=== PATIENT | female | born 1980 | race Caucasian/White ===

== ENCOUNTER 2016-08-26 04:47 | Emergency (ER) | payer OTHER ==
[~2016-08-26] VITALS: Ht 165.1 cm; Wt 126.1 kg
[~2016-08-26 04:47] MED LIST: ABILIFY5 MG PO; ADVAIR DISKUS1 DSK IH; ALBUTEROL0.09 MG/A2 IH; ANAPROX DS550 MG PO; BACTRIM DS 8001 TA1 PO; BIAXIN500 MG PO; CIPRO500 MG PO; CIPRODEX 0.3%-7.5 ML OT; CLARITIN-D 10 M1 T24 PO; CLARITIN10 MG PO; COMBIVENT1 ARO IH; CRESTOR20 MG PO; CYCLOBENZAPRINE10 MG PO; DICLOFENAC POTA50 MG PO; DOXYCYCLINE MO100 MG PO; ERYTHROMYCIN400 MG PO; FLONASE ALLERG9.9 ML NAS; FLONASE0.05 MG/AC NS; GLUCOPHAGE1000 MG PO; HYDROCODONE BIT1 T11 PO; IBU800 M1 PO; LANTUS100 U/ML SC; LEVAQUIN750 M1 PO; LEVAQUIN750 MG PO; LEVEMIR10 ML SC; LEVEMIR100 U/ML SC; LIPITOR80 MG PO; MAXZIDE-25 25 M1 TAB PO; MEDROL DOSEPAK4 MG PO; MOTRIN800 MG PO; NAPROSYN500 MG PO; NEXIUM I.V.40 MG PO; NEXIUM40 MG PO; NORCO 325 MG-51 TAB PO; NORFLEX100 MG PO; NOVOLOG FLEX100 U/ML SC; NYSTATIN CREAM15 GM T; PARAFON FORTE500 MG PO; POTASSIUM CHLO20 ME4 PO; PREDNICOT20 MG PO; PREDNISONE10 MG PO; PREDNISONE20 MG PO; PROVENTIL0.09 MG/AC IH; ROBITUSSIN AC 10 MG/ PO; ROBITUSSIN DM 105 ML PO; ROBITUSSIN DM120 ML PO; ROBITUSSIN-AC 160 ML PO; SILVADENE1% TP; SINGULAIR10 M1 PO; SUDAFED60 MG PO; TESSALON PERLE100 M1 PO; TESSALON PERLE200 MG PO; VALIUM10 MG PO; VICODIN 5-3001 EACH PO; VICODIN 5/500 505 MG PO; VITAMIN C500 MG PO; ZITHROMAX Z PA250 MG PO; ZITHROMAX Z-PA250 MG PO; ZITHROMAX250 MG PO; ZITHROMAX500 MG PO; ZOFRAN4 MG PO; ZYRTEC10 MG PO; Zofran4 MG PO; [UNRECOGNIZED DRUG - OTHER] PO; [UNRECOGNIZED DRUG - REMARK]; [UNRECOGNIZED DRUG - REMARK]
[2016-08-26] MEDS ORDERED: VENTOLIN H0.09 MG/AC INH (04:53)
[2016-08-26 06:22] VITALS: BP 138/72
[2016-08-26 06:54] LABS: BASO # 0.1 10*3/uL (0.0-0.1); BASO % 0.7 % (0.0-1.0); EOS # 0.3 10*3/uL (0.0-0.4); HEMATOCRIT 41.6 % (37.0-47.0); IG # 0.1 10*3/uL (0.0-0.1); LYMPH # 4.2 10*3/uL (1.3-4.4); LYMPH % 32.8 % (27.0-41.0); MEAN CELL VOLUME 93.1 fl (81.0-99.0); MEAN CORPUSCULAR HGB 31.3 pg (27.0-31.0); MEAN CORPUSCULAR HGB CONC 33.7 g/dl (33.0-37.0); MEAN PLATELET VOLUME 9.3 fl (9.6-12.3); MONO # 0.9 10*3/uL (0.1-1.0); MONO % 6.9 % (3.0-9.0); NEUT # 7.4 10*3/uL (2.3-7.9); NEUT % 57.2 % (47.0-73.0); PLATELET COUNT AUTOMATED 219 10*3/uL (130-400); RED BLOOD COUNT 4.47 10*6/uL (4.10-5.10); RED CELL DISTRI WIDTH 12.4 % (0-14.5); WHITE BLOOD COUNT 12.9 10*3/uL (4.8-10.8)
[2016-08-26 07:02] LABS: INTERNATIONAL NORM RATIO 0.9 (2.0-3.5)
[2016-08-26 07:11] LABS: ALBUMIN 3.3 gm/dl (3.1-4.5); ALKALINE PHOSPHATASE 81 U/L (45-117); BILIRUBIN, TOTAL 0.4 mg/dl (0.2-1.0); BUN 12 mg/dl (7-24); CARBON DIOXIDE 26 mmol/L (21-32); CHLORIDE 102 mmol/L (98-107); EST GLOM FILT AFRICAN AMERICAN > 60 ml/min; GLUCOSE 137 mg/dL (65-99); POTASSIUM 3.4 mmol/L (3.5-5.1); SGOT/AST 18 IU/L (3-35); SGPT/ALT 25 U/L (12-78); SODIUM 140 mmol/L (136-145); TOTAL PROTEIN 7.2 gm/dL (6.4-8.2)
[2016-08-26 07:12] LABS: C-REACTIVE PROTEIN 1.09 MG/DL (0-0.3); CKMB 1.3 ng/ml (0.5-3.6); MAGNESIUM 2.1 mg/dL (1.5-2.1)
[2016-09-05] MEDS ORDERED: MEDROL DOSEPAK4 MG PO (20:17)
[2016-09-05] MEDS ORDERED: ZITHROMAX500 MG PO (20:17)
[2016-10-09] MEDS ORDERED: FOLTANX TABLET1 EACH PO (01:17)
[2016-10-09] MEDS ORDERED: Glimepiride1 MG PO (01:17)
[2016-10-09] MEDS ORDERED: JANUVIA100 MG PO (01:17)
[2016-10-09] MEDS ORDERED: TRESIBA FL200 UNIT/1 SQ (01:18)
[2016-10-09] MEDS ORDERED: ZOFRAN ODT4 MG SL (03:56)
[2016-10-09] MEDS ORDERED: BENTYL10 MG PO (03:56)
[2016-10-09] MEDS ORDERED: ULTRAM50 MG PO (03:56)
== END 2016-08-26 07:48 | disposition home or self-care (01) ==
LOC: ED 04:47
PROVIDERS: Emergency Medicine
DX: J45.20 Mild intermittent asthma, uncomplicated (principal); F17.200 Nicotine dependence, unspecified, uncomplicated; Z98.890 Other specified postprocedural states; Z88.0 Allergy status to penicillin; Z91.041 Radiographic dye allergy status; Z88.5 Allergy status to narcotic agent

== ENCOUNTER → 2016-12-12 | Outpatient (CLI) | payer OTHER ==
[~2016-12-12] MED LIST changes: +BENTYL10 MG PO; +FOLTANX TABLET1 EACH PO; +Glimepiride1 MG PO; +JANUVIA100 MG PO; +TRESIBA FL200 UNIT/1 SQ; +ULTRAM50 MG PO; +VENTOLIN H0.09 MG/AC INH; +ZOFRAN ODT4 MG SL
== END | disposition home or self-care (01) ==
LOC: LAB 23:02
PROVIDERS: Internal Medicine
DX: G89.4 Chronic pain syndrome (principal); F11.90 Opioid use, unspecified, uncomplicated

== ENCOUNTER 2017-01-15 22:22 | Emergency (ER) | payer OTHER ==
[~2017-01-15] VITALS: Ht 165.1 cm; Wt 131.1 kg
[2017-01-15 22:29] VITALS: BP 140/80
[2017-01-15] MEDS ORDERED: VIBRAMYCIN100 MG PO (22:53)
[2017-01-15 23:00] LABS: BILIRUBIN NEGATIVE (NEGATIVE); BLOOD TRACE-INTACT (NEGATIVE); CLARITY CLEAR (CLEAR); COLOR YELLOW (YELLOW); GLUCOSE NEGATIVE (NEGATIVE); KETONE NEGATIVE (NEGATIVE); LEUKO ESTERASE NEGATIVE (NEGATIVE); NITRITE NEGATIVE (NEGATIVE); PH 5.5 (5.0-9.0); PROTEIN NEGATIVE (NEGATIVE); SPECIFIC GRAVITY 1.025 (1.005-1.030); UROBILINOGEN 0.2 E.U./dl (0.2-1.0)
[2017-01-15 23:18] LABS: BACTERIA 1+; RBC 0-2 rbc/hpf (0-2); URINE REFLEX COMMENT YES (NO)
== END 2017-01-15 23:31 | disposition home or self-care (01) ==
LOC: ED 22:22
PROVIDERS: Physician Assistant
DX: J01.91 Acute recurrent sinusitis, unspecified (principal); Z98.890 Other specified postprocedural states; Z79.899 Other long term (current) drug therapy; Z91.041 Radiographic dye allergy status; Z88.0 Allergy status to penicillin; Z88.5 Allergy status to narcotic agent

== ENCOUNTER → 2017-08-08 | Outpatient (CLI) | payer OTHER ==
[~2017-08-08] VITALS: Ht 165.1 cm; Wt 131.1 kg
[~2017-08-08] MED LIST changes: +ALL DAY ALLERGY10 MG PO; +ALLEGRA-D 24 H1 EACH PO; +VIBRAMYCIN100 MG PO
[2017-08-11 09:20] VITALS: BP 106/58
== END | disposition home or self-care (01) ==
LOC: LAB 00:01 → SDC 09:30 → EDSTATUS 08-11 09:30
DX: Z01.818 Encounter for other preprocedural examination (principal); M79.641 Pain in right hand; M65.311 Trigger thumb, right thumb; E11.9 Type 2 diabetes mellitus without complications; J44.9 Chronic obstructive pulmonary disease, unspecified; F17.200 Nicotine dependence, unspecified, uncomplicated

== ENCOUNTER 2017-08-26 00:50 | Emergency (ER) | payer OTHER ==
[~2017-08-26] VITALS: Ht 165.1 cm; Wt 131.1 kg
[~2017-08-26 00:50] MED LIST changes: -ALLEGRA-D 24 H1 EACH PO
[2017-08-26 00:54] VITALS: BP 146/65
[2017-08-26] MEDS ORDERED: FLONASE ALLERG9.9 ML NAS (01:02)
[2017-08-26] MEDS ORDERED: ALLEGRA-D 24 H1 EACH PO (01:02)
[2017-08-26] MEDS ORDERED: VIBRAMYCIN100 MG PO (01:02)
== END 2017-08-26 01:05 | disposition home or self-care (01) ==
LOC: ED 00:50
DX: J32.9 Chronic sinusitis, unspecified (principal); R05 Cough; J44.9 Chronic obstructive pulmonary disease, unspecified; F17.200 Nicotine dependence, unspecified, uncomplicated; Z98.890 Other specified postprocedural states; Z79.899 Other long term (current) drug therapy; Z91.041 Radiographic dye allergy status; Z88.0 Allergy status to penicillin; Z88.5 Allergy status to narcotic agent

== ENCOUNTER 2017-11-27 16:03 | Emergency (ER) | payer OTHER ==
[~2017-11-27] VITALS: Ht 165.1 cm; Wt 129.3 kg
[~2017-11-27 16:03] MED LIST changes: +ALLEGRA-D 24 H1 EACH PO
[2017-11-27] MEDS ORDERED: ZITHROMAX250 MG PO (17:47)
[2017-11-27] MEDS ORDERED: Motrin,Rufen800 MG PO (17:47)
[2017-11-27] MEDS ORDERED: CYCLOBENZAPRINE5 M3 PO (17:47)
[2017-11-27] MEDS ORDERED: FLONASE ALLERG9.9 ML NS (17:50)
[2017-11-27 18:01] VITALS: BP 107/57
== END 2017-11-27 18:02 | disposition home or self-care (01) ==
LOC: ED 16:03
DX: M62.838 Other muscle spasm (principal); M54.2 Cervicalgia; J01.10 Acute frontal sinusitis, unspecified; F17.200 Nicotine dependence, unspecified, uncomplicated; Z98.890 Other specified postprocedural states; Z79.899 Other long term (current) drug therapy; Z91.041 Radiographic dye allergy status; Z88.0 Allergy status to penicillin; Z88.5 Allergy status to narcotic agent

== ENCOUNTER 2017-12-20 19:15 | Emergency (ER) | payer OTHER ==
[~2017-12-20] VITALS: Ht 165.1 cm; Wt 133.8 kg
[~2017-12-20 19:15] MED LIST changes: +CYCLOBENZAPRINE5 M3 PO; +FLONASE ALLERG9.9 ML NS; +Motrin,Rufen800 MG PO
[2017-12-20] MEDS ORDERED: AMARYL1 M1 PO (19:25)
[2017-12-20 20:22] VITALS: BP 128/69
[2017-12-20] MEDS ORDERED: ZITHROMAX250 MG PO (21:37)
[2017-12-20] MEDS ORDERED: DELTASONE20 M1 PO (21:37)
[2017-12-20] MEDS ORDERED: TESSALON PERLE100 M1 PO (21:37)
== END 2017-12-20 21:45 | disposition home or self-care (01) ==
LOC: ED 19:15
DX: J40 Bronchitis, not specified as acute or chronic (principal); F17.200 Nicotine dependence, unspecified, uncomplicated; Z98.890 Other specified postprocedural states; Z79.899 Other long term (current) drug therapy; Z91.041 Radiographic dye allergy status; Z88.0 Allergy status to penicillin; Z88.5 Allergy status to narcotic agent; Z91.013 Allergy to seafood; Z87.01 Personal history of pneumonia (recurrent)

== ENCOUNTER 2017-12-27 23:09 | Emergency (ER) | payer OTHER ==
[~2017-12-27] VITALS: Ht 165.1 cm; Wt 133.8 kg
[~2017-12-27 23:09] MED LIST changes: +AMARYL1 M1 PO; +DELTASONE20 M1 PO
[2017-12-27 23:12] VITALS: BP 148/77
[2017-12-27] MEDS ORDERED: FLONASE ALLERG9.9 ML NAS (23:43)
[2017-12-27] MEDS ORDERED: VIBRAMYCIN100 MG PO (23:43)
== END 2017-12-28 00:06 | disposition home or self-care (01) ==
LOC: ED 23:09
DX: J01.00 Acute maxillary sinusitis, unspecified (principal); F17.200 Nicotine dependence, unspecified, uncomplicated; Z98.890 Other specified postprocedural states; Z79.899 Other long term (current) drug therapy; Z91.041 Radiographic dye allergy status; Z88.0 Allergy status to penicillin; Z91.013 Allergy to seafood

== ENCOUNTER 2018-06-23 16:41 | Emergency (ER) | payer OTHER ==
[~2018-06-23] VITALS: Ht 165.1 cm; Wt 126.6 kg
[2018-06-23 16:43] VITALS: BP 145/80
[2018-06-23 18:08] LABS: BILIRUBIN NEGATIVE (NEGATIVE); BLOOD NEGATIVE (NEGATIVE); CLARITY SL CLOUDY (CLEAR); COLOR YELLOW (YELLOW); GLUCOSE NEGATIVE (NEGATIVE); KETONE NEGATIVE (NEGATIVE); LEUKO ESTERASE TRACE (NEGATIVE); NITRITE NEGATIVE (NEGATIVE); PH 5.5 (5.0-9.0); SPECIFIC GRAVITY 1.025 (1.005-1.030); UROBILINOGEN 0.2 E.U./dl (0.2-1.0)
[2018-06-23 18:19] LABS: BACTERIA 2+
[2018-06-23 18:20] LABS: EPITHELIAL CELLS 31-40
[2018-06-23] MEDS ORDERED: FLONASE ALLERG9.9 ML NAS (19:41)
== END 2018-06-23 19:30 | disposition home or self-care (01) ==
LOC: ED 16:41
PROVIDERS: Emergency Medicine
DX: R07.81 Pleurodynia (principal); E11.9 Type 2 diabetes mellitus without complications; J44.9 Chronic obstructive pulmonary disease, unspecified; F17.200 Nicotine dependence, unspecified, uncomplicated; Z91.041 Radiographic dye allergy status; Z88.0 Allergy status to penicillin; Z91.030 Bee allergy status; Z88.5 Allergy status to narcotic agent; Z91.048 Other nonmedicinal substance allergy status; Z79.1 Long term (current) use of non-steroidal anti-inflammatories (NSAID); Z79.2 Long term (current) use of antibiotics; Z79.84 Long term (current) use of oral hypoglycemic drugs; Z79.899 Other long term (current) drug therapy

== ENCOUNTER 2018-08-27 | Emergency (ER) | payer OTHER ==
[2018-08-27] MEDS ORDERED: FLONASE ALLERG9.9 ML NAS (19:20)
[2018-08-27] MEDS ORDERED: ZYRTEC10 MG PO (19:20)
[2018-08-27] MEDS ORDERED: ZITHROMAX250 MG PO (19:20)
[2019-02-28] MEDS ORDERED: LEVOFLOXACIN500 MG PO (10:17)
== END 2018-08-27 18:42 | disposition home or self-care (01) ==
DX: J01.90 Acute sinusitis, unspecified (principal); F17.200 Nicotine dependence, unspecified, uncomplicated; Z91.041 Radiographic dye allergy status; Z88.0 Allergy status to penicillin; Z91.030 Bee allergy status; Z88.5 Allergy status to narcotic agent; Z91.048 Other nonmedicinal substance allergy status; Z79.2 Long term (current) use of antibiotics; Z79.84 Long term (current) use of oral hypoglycemic drugs; Z79.899 Other long term (current) drug therapy

== ENCOUNTER 2018-09-13 20:56 | Emergency (ER) | payer OTHER ==
[~2018-09-13] VITALS: Ht 165.1 cm; Wt 127.0 kg
[2018-09-13 20:59] VITALS: BP 107/72
== END 2018-09-13 22:25 | disposition home or self-care (01) ==
LOC: ED 20:56
DX: S62.346A Nondisplaced fracture of base of fifth metacarpal bone, right hand, initial encounter for closed fracture (principal); J44.9 Chronic obstructive pulmonary disease, unspecified; E11.9 Type 2 diabetes mellitus without complications; E78.5 Hyperlipidemia, unspecified; F17.200 Nicotine dependence, unspecified, uncomplicated; Z91.041 Radiographic dye allergy status; Z88.0 Allergy status to penicillin; Z91.030 Bee allergy status; Z88.5 Allergy status to narcotic agent; Z91.048 Other nonmedicinal substance allergy status; Z79.899 Other long term (current) drug therapy; Z79.84 Long term (current) use of oral hypoglycemic drugs; Z79.2 Long term (current) use of antibiotics; W22.8XXA Striking against or struck by other objects, initial encounter; Y93.89 Activity, other specified; Y92.098 Other place in other non-institutional residence as the place of occurrence of the external cause; Y99.8 Other external cause status

== ENCOUNTER → 2019-02-10 | Outpatient (CLI) | payer OTHER ==
[~2019-02-10] MED LIST changes: +LEVOFLOXACIN500 MG PO
== END | disposition home or self-care (01) ==
LOC: ORTHO 00:51
DX: M25.512 Pain in left shoulder (principal)

== ENCOUNTER → 2019-03-23 | Outpatient (CLI) | payer OTHER | END | disposition home or self-care (01) | LOC: CT 03-16 09:00 | DX: I25.10 Atherosclerotic heart disease of native coronary artery without angina pectoris (principal); J84.10 Pulmonary fibrosis, unspecified; J18.9 Pneumonia, unspecified organism; R06.02 Shortness of breath; Z90.49 Acquired absence of other specified parts of digestive tract ==

== ENCOUNTER 2019-03-29 21:54 | Emergency (ER) | payer OTHER ==
[~2019-03-29] VITALS: Wt 126.1 kg
[2019-03-29 22:31] LABS: BASO # 0.1 10*3/uL (0.0-0.1); BASO % 0.5 % (0.0-1.0); EOS # 0.2 10*3/uL (0.0-0.4); EOS % 1.7 % (1.0-4.0); HEMATOCRIT 47.7 % (37.0-47.0); HEMOGLOBIN 15.5 g/dl (12.0-16.0); LYMPH # 4.4 10*3/uL (1.3-4.4); LYMPH % 34.7 % (27.0-41.0); MEAN CELL VOLUME 94.6 fl (81.0-99.0); MEAN CORPUSCULAR HGB 30.8 pg (27.0-31.0); MEAN CORPUSCULAR HGB CONC 32.5 g/dl (33.0-37.0); MEAN PLATELET VOLUME 9.4 fl (9.6-12.3); MONO # 0.8 10*3/uL (0.1-1.0); MONO % 6.3 % (3.0-9.0); NEUT # 7.2 10*3/uL (2.3-7.9); NEUT % 56.3 % (47.0-73.0); PLATELET COUNT AUTOMATED 190 10*3/uL (130-400); RED BLOOD COUNT 5.04 10*6/uL (4.10-5.10); RED CELL DISTRI WIDTH 12.5 % (0-14.5); WHITE BLOOD COUNT 12.8 10*3/uL (4.8-10.8)
[2019-03-29 22:46] LABS: ALBUMIN 3.4 gm/dl (3.1-4.5); ALKALINE PHOSPHATASE 91 U/L (45-117); BUN 11 mg/dl (7-24); CHLORIDE 106 mmol/L (98-107); CREATININE 0.84 mg/dL (0.55-1.02); LIPASE 125 U/L (73-393); POTASSIUM 3.8 mmol/L (3.5-5.1); SGOT/AST 20 IU/L (3-35); SGPT/ALT 25 U/L (12-78); SODIUM 138 mmol/L (136-145); TOTAL PROTEIN 7.3 gm/dL (6.4-8.2)
[2019-03-29 22:49] LABS: BILIRUBIN NEGATIVE (NEGATIVE); BLOOD NEGATIVE (NEGATIVE); CLARITY SL CLOUDY (CLEAR); COLOR YELLOW (YELLOW); GLUCOSE 3+ (NEGATIVE); KETONE NEGATIVE (NEGATIVE); LEUKO ESTERASE NEGATIVE (NEGATIVE); NITRITE NEGATIVE (NEGATIVE); PH 5.5 (5.0-9.0); SPECIFIC GRAVITY 1.015 (1.005-1.030); UROBILINOGEN 0.2 E.U./dl (0.2-1.0)
[2019-03-29 22:55] LABS: RBC 0-2 rbc/hpf (0-2); WBC 0-2 wbc/hpf (0-5)
[2019-03-29 22:56] LABS: BACTERIA 3+
[2019-03-29 23:59] VITALS: BP 118/60
== END 2019-03-30 00:20 | disposition home or self-care (01) ==
LOC: ED 21:54
PROVIDERS: Student in an Organized Health Care Education/Training Program
DX: R10.11 Right upper quadrant pain (principal); J45.909 Unspecified asthma, uncomplicated; Z90.49 Acquired absence of other specified parts of digestive tract; Z91.041 Radiographic dye allergy status; Z88.0 Allergy status to penicillin; Z91.030 Bee allergy status; Z88.5 Allergy status to narcotic agent; Z91.048 Other nonmedicinal substance allergy status; Z79.899 Other long term (current) drug therapy; Z79.2 Long term (current) use of antibiotics

== ENCOUNTER 2019-12-22 23:39 | Emergency (ER) | payer OTHER ==
[~2019-12-22] VITALS: Ht 165.1 cm; Wt 131.1 kg
[2019-12-22 23:48] VITALS: BP 134/66
[2019-12-23] MEDS ORDERED: CLINDAMYCIN HC300 MG PO (00:17)
[2019-12-23] MEDS ORDERED: IBU800 MG PO (00:17)
== END 2019-12-23 00:43 | disposition home or self-care (01) ==
LOC: ED 23:39
DX: K06.1 Gingival enlargement (principal); K21.9 Gastro-esophageal reflux disease without esophagitis; E11.9 Type 2 diabetes mellitus without complications; F32.9 Major depressive disorder, single episode, unspecified; F41.9 Anxiety disorder, unspecified; J44.9 Chronic obstructive pulmonary disease, unspecified; E78.00 Pure hypercholesterolemia, unspecified; J45.909 Unspecified asthma, uncomplicated; F17.200 Nicotine dependence, unspecified, uncomplicated; Z91.030 Bee allergy status; Z88.0 Allergy status to penicillin; Z88.5 Allergy status to narcotic agent; Z79.899 Other long term (current) drug therapy; Z79.2 Long term (current) use of antibiotics

== ENCOUNTER → 2020-04-16 | Outpatient (CLI) | payer OTHER ==
[~2020-04-16] MED LIST changes: +CLINDAMYCIN HC300 MG PO; +IBU800 MG PO
[2020-04-16 16:23] LABS: ALBUMIN 3.4 gm/dl (3.1-4.5); ALKALINE PHOSPHATASE 91 U/L (45-117); BILIRUBIN, DIRECT 0.2 mg/dL (0.0-0.2); BUN 9 mg/dl (7-24); CHLORIDE 105 mmol/L (98-107); CHOLESTEROL 164 mg/dL (<200); POTASSIUM 3.8 mmol/L (3.5-5.1); SGOT/AST 31 IU/L (3-35); SGPT/ALT 34 U/L (12-78); SODIUM 137 mmol/L (136-145); TOTAL PROTEIN 7.4 gm/dL (6.4-8.2); TRIGLYCERIDES 299 mg/dl (<150); VLDL CHOLESTEROL 60 mg/dL (6-40)
[2020-04-16 16:27] LABS: HDL CHOLESTEROL 32 mg/dl (40-60); LDL CHOLESTEROL 72 mg/dL (9-159); THYROID STIM HORMONE (HS) 0.179 uIU/ml (0.358-4.75)
[2020-04-16 16:50] LABS: VITAMIN D, 25-HYDROXY 16.5 ng/mL (30-100)
== END | disposition home or self-care (01) ==
LOC: LAB 15:30
PROVIDERS: Nurse Practitioner Family
DX: E78.5 Hyperlipidemia, unspecified (principal); E11.65 Type 2 diabetes mellitus with hyperglycemia; E04.9 Nontoxic goiter, unspecified; E55.9 Vitamin D deficiency, unspecified; E11.40 Type 2 diabetes mellitus with diabetic neuropathy, unspecified

== ENCOUNTER 2020-05-27 07:46 | Emergency (ER) | payer OTHER ==
[~2020-05-27] VITALS: Ht 165.1 cm; Wt 127.9 kg
[2020-05-27 07:50] VITALS: BP 111/78
[2020-05-27 08:55] LABS: BILIRUBIN Negative (Negative); BLOOD Negative (Negative); CLARITY Clear (Clear); COLOR Yellow (Yellow); GLUCOSE 3+ (Negative); KETONE Negative (Negative); LEUKO ESTERASE 1+ (Negative); NITRITE Negative (Negative); SPECIFIC GRAVITY >= 1.030 (1.001-1.030); UROBILINOGEN 0.2 E.U./dl (0.0-1.0)
[2020-05-27 09:00] LABS: BACTERIA 2+; RBC 0-2 rbc/hpf (0-2); YEAST 1+
[2020-05-27] MEDS ORDERED: DIFLUCAN150 MG PO (09:52)
[2020-05-27] MEDS ORDERED: GYNE-LOTRIMIN-745 GM V (09:52)
[2020-05-27] MEDS ORDERED: NAPROSYN500 MG PO (09:59)
[2020-05-27] MEDS ORDERED: TYLENOL325 M1 PO (09:59)
== END 2020-05-27 10:10 | disposition home or self-care (01) ==
LOC: ED 07:46
PROVIDERS: Emergency Medicine
DX: N76.0 Acute vaginitis (principal); K21.9 Gastro-esophageal reflux disease without esophagitis; E11.9 Type 2 diabetes mellitus without complications; F32.9 Major depressive disorder, single episode, unspecified; J44.9 Chronic obstructive pulmonary disease, unspecified; E78.00 Pure hypercholesterolemia, unspecified; Z88.0 Allergy status to penicillin; Z88.8 Allergy status to other drugs, medicaments and biological substances; Z88.5 Allergy status to narcotic agent; Z91.041 Radiographic dye allergy status

== ENCOUNTER → 2020-08-11 | Outpatient (CLI) | payer OTHER ==
[~2020-08-11] MED LIST changes: +DIFLUCAN150 MG PO; +GYNE-LOTRIMIN-745 GM V; +TYLENOL325 M1 PO
[2020-08-11 04:33] LABS: BILIRUBIN Negative (Negative); BLOOD Negative (Negative); CLARITY Cloudy (Clear); COLOR Yellow (Yellow); GLUCOSE Trace (Negative); KETONE Negative (Negative); LEUKO ESTERASE Trace (Negative); NITRITE Negative (Negative); PH 5.5 (4.5-8.0)
[2020-08-11 04:51] LABS: ALBUMIN 3.2 gm/dl (3.1-4.5); ALKALINE PHOSPHATASE 110 U/L (45-117); BILIRUBIN, DIRECT 0.2 mg/dL (0.0-0.2); BUN 6 mg/dl (7-24); CHLORIDE 103 mmol/L (98-107); CHOLESTEROL 163 mg/dL (<200); FREE T4 1.01 ng/dl (0.76-1.46); HDL CHOLESTEROL 30 mg/dl (40-60); LDL CHOLESTEROL 76 mg/dL (9-159); POTASSIUM 3.1 mmol/L (3.5-5.1); SGOT/AST 34 IU/L (3-35); SGPT/ALT 45 U/L (12-78); SODIUM 136 mmol/L (136-145); TOTAL PROTEIN 7.2 gm/dL (6.4-8.2); TRIGLYCERIDES 285 mg/dl (<150); VLDL CHOLESTEROL 57 mg/dL (6-40)
[2020-08-11 08:17] LABS: VITAMIN D, 25-HYDROXY 17.1 ng/mL (30-100)
[2020-08-12 05:10] LABS: THYROID PEROXIDASE (TPO) AB 36 IU/mL (0-34)
[2020-08-14 19:08] LABS: THYROGLOBULIN ANTIBODY <1.0 IU/mL (0.0-0.9)
== END | disposition home or self-care (01) ==
LOC: LAB 03:24
PROVIDERS: ATTEND Internal Medicine
DX: E11.65 Type 2 diabetes mellitus with hyperglycemia (principal); E11.40 Type 2 diabetes mellitus with diabetic neuropathy, unspecified; E75.5 Other lipid storage disorders; E04.9 Nontoxic goiter, unspecified; E55.9 Vitamin D deficiency, unspecified; E78.5 Hyperlipidemia, unspecified

== ENCOUNTER 2020-12-19 18:42 | Emergency (ER) | payer OTHER ==
[2020-12-19 19:14] VITALS: BP 108/75
[2020-12-19 19:36] LABS: BILIRUBIN Negative (Negative); BLOOD Negative (Negative); CLARITY Clear (Clear); COLOR Yellow (Yellow); GLUCOSE 3+ (Negative); KETONE Negative (Negative); LEUKO ESTERASE Negative (Negative); NITRITE Negative (Negative); PH 5.5 (4.5-8.0); SPECIFIC GRAVITY >= 1.030 (1.001-1.030); UROBILINOGEN 0.2 E.U./dl (0.0-1.0)
[2020-12-19 19:58] LABS: BACTERIA 1+; WBC 0-2 wbc/hpf (0-5); YEAST TRACE
[2020-12-19] MEDS ORDERED: CIPRO500 MG PO (20:08)
== END 2020-12-19 20:25 | disposition home or self-care (01) ==
LOC: ED 18:42
PROVIDERS: Internal Medicine
DX: N39.0 Urinary tract infection, site not specified (principal); Z88.0 Allergy status to penicillin; Z88.8 Allergy status to other drugs, medicaments and biological substances; Z88.5 Allergy status to narcotic agent; Z91.030 Bee allergy status; Z79.899 Other long term (current) drug therapy; Z98.890 Other specified postprocedural states

== ENCOUNTER 2021-03-23 03:34 | Emergency (ER) | payer OTHER ==
[~2021-03-23] VITALS: Ht 165.1 cm; Wt 130.2 kg
[2021-03-23 03:40] VITALS: BP 138/75
[2021-03-23] MEDS ORDERED: LEVOFLOXACIN500 MG PO (04:36)
[2021-03-23] MEDS ORDERED: PREDNISONE20 M1 PO (04:36)
== END 2021-03-23 04:51 | disposition home or self-care (01) ==
LOC: ED 03:34
DX: J01.00 Acute maxillary sinusitis, unspecified (principal); F17.200 Nicotine dependence, unspecified, uncomplicated; Z91.041 Radiographic dye allergy status; Z88.0 Allergy status to penicillin; Z91.030 Bee allergy status; Z88.5 Allergy status to narcotic agent; Z91.048 Other nonmedicinal substance allergy status; Z79.2 Long term (current) use of antibiotics; Z79.899 Other long term (current) drug therapy

== ENCOUNTER → 2021-06-24 | Outpatient (CLI) | payer OTHER ==
[~2021-06-24] MED LIST changes: +PREDNISONE20 M1 PO
[2021-06-24 14:13] LABS: BILIRUBIN Negative (Negative); BLOOD Negative (Negative); CLARITY Clear (Clear); COLOR Yellow (Yellow); GLUCOSE 3+ (Negative); KETONE Negative (Negative); LEUKO ESTERASE Negative (Negative); NITRITE Negative (Negative); PH 5.5 (4.5-8.0); SPECIFIC GRAVITY >= 1.030 (1.001-1.030); UROBILINOGEN 0.2 E.U./dl (0.0-1.0)
[2021-06-24 14:30] LABS: ALBUMIN 3.5 gm/dl (3.1-4.5); ALKALINE PHOSPHATASE 101 U/L (45-117); BUN 10 mg/dl (7-24); BUN 9 mg/dl (7-24); CHLORIDE 104 mmol/L (98-107); CHOLESTEROL 147 mg/dL (<200); CREATININE 0.77 mg/dL (0.55-1.02); CREATININE 0.79 mg/dL (0.55-1.02); LDL CHOLESTEROL 51 mg/dL (9-159); POTASSIUM 3.6 mmol/L (3.5-5.1); SGOT/AST 24 IU/L (3-35); SGPT/ALT 26 U/L (12-78); SODIUM 138 mmol/L (136-145); TRIGLYCERIDES 326 mg/dl (<150)
[2021-06-24 14:32] LABS: BACTERIA 3+
[2021-06-24 14:35] LABS: FREE T4 1.04 ng/dl (0.76-1.46)
[2021-06-26 17:07] LABS: THYROGLOBULIN ANTIBODY <1.0 IU/mL (0.0-0.9)
[2021-06-28 11:58] LABS: THYROID PEROXIDASE (TPO) AB 37 IU/mL (0-34)
== END | disposition home or self-care (01) ==
LOC: LAB 13:25
PROVIDERS: Internal Medicine; ATTEND Internal Medicine
DX: M47.817 Spondylosis without myelopathy or radiculopathy, lumbosacral region (principal); M48.061 Spinal stenosis, lumbar region without neurogenic claudication; M51.36 Other intervertebral disc degeneration, lumbar region; M89.38 Hypertrophy of bone, other site; E11.65 Type 2 diabetes mellitus with hyperglycemia; E55.9 Vitamin D deficiency, unspecified; E04.9 Nontoxic goiter, unspecified; E11.40 Type 2 diabetes mellitus with diabetic neuropathy, unspecified; E78.5 Hyperlipidemia, unspecified; E78.2 Mixed hyperlipidemia

== ENCOUNTER 2021-09-30 05:31 | Emergency (ER) | payer OTHER ==
[~2021-09-30] VITALS: Ht 165.1 cm; Wt 122.5 kg
[2021-09-30 05:46] VITALS: BP 103/64
[2021-09-30 06:00] LABS: BILIRUBIN Negative (Negative); BLOOD 1+ (Negative); CLARITY Turbid (Clear); COLOR Yellow (Yellow); GLUCOSE Negative (Negative); KETONE Negative (Negative); LEUKO ESTERASE 3+ (Negative); NITRITE Positive (Negative); PH 5.5 (4.5-8.0); SPECIFIC GRAVITY <= 1.005 (1.001-1.030)
[2021-09-30 06:17] LABS: BACTERIA 4+; EPITHELIAL CELLS 21-30; WBC TNTC wbc/hpf (0-5)
[2021-09-30] MEDS ORDERED: MACROBID100 M1 PO ×4 (06:52→07:04)
== END 2021-09-30 07:10 | disposition home or self-care (01) ==
LOC: ED 05:31
PROVIDERS: Emergency Medicine
DX: N39.0 Urinary tract infection, site not specified (principal); J45.909 Unspecified asthma, uncomplicated; F17.200 Nicotine dependence, unspecified, uncomplicated; Z91.041 Radiographic dye allergy status; Z88.0 Allergy status to penicillin; Z88.6 Allergy status to analgesic agent; Z91.013 Allergy to seafood; Z79.899 Other long term (current) drug therapy; Z98.890 Other specified postprocedural states; Z90.89 Acquired absence of other organs

== ENCOUNTER → 2021-11-09 | Outpatient (CLI) | payer OTHER ==
[~2021-11-09] MED LIST changes: +MACROBID100 M1 PO
[2021-11-09 12:13] LABS: BILIRUBIN Negative (Negative); BLOOD 1+ (Negative); CLARITY Turbid (Clear); COLOR Dark Yellow (Yellow); GLUCOSE Negative (Negative); KETONE Negative (Negative); LEUKO ESTERASE 3+ (Negative); NITRITE Positive (Negative); PH 5.5 (4.5-8.0)
[2021-11-09 12:28] LABS: BUN 9 mg/dl (7-24); CHLORIDE 99 mmol/L (98-107); CHOLESTEROL 108 mg/dL (<200); CREATININE 1.01 mg/dL (0.55-1.02); POTASSIUM 4.1 mmol/L (3.5-5.1); SGOT/AST 24 IU/L (3-35); SGPT/ALT 23 U/L (12-78); SODIUM 130 mmol/L (136-145); TRIGLYCERIDES 262 mg/dl (<150)
[2021-11-09 12:39] LABS: ALKALINE PHOSPHATASE 134 U/L (45-117); LDL CHOLESTEROL 33 mg/dL (9-159); THYROID STIM HORMONE (HS) 0.668 uIU/ml (0.358-4.75); TOTAL PROTEIN 8.1 gm/dL (6.4-8.2)
[2021-11-09 12:57] LABS: VITAMIN D, 25-HYDROXY 29.1 ng/mL (30-100)
[2021-11-09 13:36] LABS: BACTERIA 4+; EPITHELIAL CELLS 16-20; WBC TNTC wbc/hpf (0-5)
== END | disposition home or self-care (01) ==
LOC: LAB 11:36
PROVIDERS: ATTEND Internal Medicine
DX: E11.65 Type 2 diabetes mellitus with hyperglycemia (principal); E55.9 Vitamin D deficiency, unspecified; E04.9 Nontoxic goiter, unspecified; E11.40 Type 2 diabetes mellitus with diabetic neuropathy, unspecified; E78.5 Hyperlipidemia, unspecified

== ENCOUNTER → 2022-12-11 | Outpatient (CLI) | payer OTHER | END | disposition home or self-care (01) | LOC: US 12-10 16:00 | PROVIDERS: ATTEND Internal Medicine | DX: M25.562 Pain in left knee (principal); R60.0 Localized edema ==

== ENCOUNTER → 2023-12-22 | Outpatient (CLI) | payer OTHER | END | disposition home or self-care (01) | LOC: RAD 12:47 | PROVIDERS: ATTEND Podiatrist Foot & Ankle Surgery | DX: M77.32 Calcaneal spur, left foot (principal); M79.89 Other specified soft tissue disorders ==

== ENCOUNTER 2024-11-07 14:53 | Emergency (ER) | payer OTHER ==
[~2024-11-07] VITALS: Ht 165.1 cm; Wt 134.3 kg
[2024-11-07 15:12] VITALS: BP 127/52
[2024-11-07] MEDS ORDERED: MELOXICAM15 MG PO (15:22)
[2024-11-07] MEDS ORDERED: PROTONIX40 MG PO (15:24)
[2024-11-07] MEDS ORDERED: JARDIANCE25 MG PO (15:25)
[2024-11-07] MEDS ORDERED: VITAMIN D350 MCG PO (15:26)
[2024-11-07] MEDS ORDERED: STIMULANT LAXA1 EACH PO (15:29)
[2024-11-07] MEDS ORDERED: FENOFIBRATE145 M1 PO (15:30)
[2024-11-07] MEDS ORDERED: Ondansetron Hydrochloride 4 MG/2 ML VIAL IV ONE (15:35)
[2024-11-07] MEDS ORDERED: SODIUM CHLORIDE 0.9% 1,000 ML IV ONE (15:35)
[2024-11-07] MEDS ORDERED: MORPHINE Sulfate 2 MG/ML SYR IV PRN (15:35)
[2024-11-07 15:56] LABS: BASO # 0.1 10*3/uL (0.0-0.1); BASO % 0.5 % (0.0-1.0); EOS # 0.2 10*3/uL (0.0-0.4); EOS % 1.2 % (1.0-4.0); HEMATOCRIT 46.6 % (37.0-47.0); MEAN CELL VOLUME 93.2 fl (81.0-99.0); MEAN CORPUSCULAR HGB 29.8 pg (27.0-31.0); MEAN PLATELET VOLUME 9.5 fl (9.6-12.3); MONO # 0.9 10*3/uL (0.1-1.0); NEUT % 75.6 % (47.0-73.0); PLATELET COUNT AUTOMATED 213 10*3/uL (130-400); RED CELL DISTRI WIDTH 12.8 % (0-14.5); WHITE BLOOD COUNT 14.6 10*3/uL (4.8-10.8)
[2024-11-07 16:15] LABS: BUN 20 mg/dl (9-23); CHLORIDE 105 mmol/L (98-107); LIPASE 37 U/L (12-53); POTASSIUM 3.8 mmol/L (3.4-5.1)
[2024-11-07 16:24] LABS: BILIRUBIN Negative (Negative); BLOOD Negative (Negative); CLARITY Clear (Clear); COLOR Yellow (Yellow); GLUCOSE 3+ (Negative); KETONE Trace (Negative); LEUKO ESTERASE Negative (Negative); NITRITE Negative (Negative); PH 5.5 (4.5-8.0); SPECIFIC GRAVITY >= 1.030 (1.001-1.030)
[2024-11-07 16:31] LABS: BACTERIA 2+
[2024-11-07] MEDS ORDERED: cefTRIAXone Sodium 1 GM/10 ML SYR IV ONE (16:45)
[2024-11-07] MEDS ORDERED: CIPRO500 MG PO (16:59)
== END 2024-11-07 17:02 | disposition home or self-care (01) ==
LOC: ED 14:53
PROVIDERS: Emergency Medicine
DX: N39.0 Urinary tract infection, site not specified (principal); R68.83 Chills (without fever); J44.9 Chronic obstructive pulmonary disease, unspecified; R11.0 Nausea; K21.9 Gastro-esophageal reflux disease without esophagitis; E11.9 Type 2 diabetes mellitus without complications; Z79.4 Long term (current) use of insulin; F32.A Depression, unspecified; F41.9 Anxiety disorder, unspecified; E78.00 Pure hypercholesterolemia, unspecified; Z91.041 Radiographic dye allergy status; Z88.0 Allergy status to penicillin; Z91.030 Bee allergy status; Z88.5 Allergy status to narcotic agent; Z91.048 Other nonmedicinal substance allergy status; Z91.013 Allergy to seafood; Z90.710 Acquired absence of both cervix and uterus; Z90.49 Acquired absence of other specified parts of digestive tract; Z98.890 Other specified postprocedural states

== ENCOUNTER 2024-12-13 17:20 | Emergency (ER) | payer OTHER, MEDICAID ==
[~2024-12-13] VITALS: Ht 165.1 cm; Wt 129.3 kg
[~2024-12-13 17:20] MED LIST changes: +FENOFIBRATE145 M1 PO; +JARDIANCE25 MG PO; +MELOXICAM15 MG PO; +PROTONIX40 MG PO; +STIMULANT LAXA1 EACH PO; +VITAMIN D350 MCG PO
[2024-12-13] MEDS ORDERED: Ketorolac Tromethamine 30 MG/ML VIAL IM ONE (18:35)
[2024-12-13 19:25] VITALS: BP 128/76
[2024-12-13] MEDS ORDERED: NAPROSYN500 MG PO (20:44)
[2024-12-13] MEDS ORDERED: ZANAFLEX4 MG PO (20:44)
[2024-12-13] MEDS ORDERED: tiZANidine Hydrochloride 4 MG TAB PO ONE (20:45)
== END 2024-12-13 20:49 | disposition home or self-care (01) ==
LOC: ED 17:20
DX: S20.211A Contusion of right front wall of thorax, initial encounter (principal); Z91.041 Radiographic dye allergy status; Z88.0 Allergy status to penicillin; Z91.030 Bee allergy status; Z88.5 Allergy status to narcotic agent; Z91.048 Other nonmedicinal substance allergy status; Z79.899 Other long term (current) drug therapy; Z98.890 Other specified postprocedural states; X50.1XXA Overexertion from prolonged static or awkward postures, initial encounter; Y93.89 Activity, other specified; Y92.89 Other specified places as the place of occurrence of the external cause; Y99.8 Other external cause status

== ENCOUNTER 2025-02-28 18:28 | Emergency (ER) | payer OTHER, MEDICAID ==
[~2025-02-28] VITALS: Ht 165.1 cm; Wt 132.9 kg
[~2025-02-28 18:28] MED LIST changes: +ZANAFLEX4 MG PO
[2025-02-28 18:41] VITALS: BP 126/106
[2025-02-28] MEDS ORDERED: SODIUM CHLORIDE 0.9% 1,000 ML IV ONE (19:30)
[2025-02-28 19:49] LABS: BASO # 0.1 10*3/uL (0.0-0.1); BASO % 0.7 % (0.0-1.0); EOS # 0.3 10*3/uL (0.0-0.4); EOS % 2.8 % (1.0-4.0); MEAN CELL VOLUME 92.4 fl (81.0-99.0); MEAN CORPUSCULAR HGB 29.9 pg (27.0-31.0); MEAN PLATELET VOLUME 9.9 fl (9.6-12.3); MONO # 1.0 10*3/uL (0.1-1.0); MONO % 10.2 % (3.0-9.0); NEUT # 5.3 10*3/uL (2.3-7.9); NEUT % 56.5 % (47.0-73.0); NUCLEATED RED BLOOD CELL 0.0 % (0.0-0.0); NUCLEATED RED BLOOD CELL 0.0 10*3/uL (0.0-0.0); PLATELET COUNT AUTOMATED 173 10*3/uL (130-400); RED CELL DISTRI WIDTH 13.0 % (0-14.5)
[2025-02-28 20:16] LABS: BUN 15.0 mg/dl (9-23); SGPT/ALT 23.0 U/L (5-49)
[2025-02-28] MEDS ORDERED: CLINDAMYCIN HC300 MG PO (21:35)
[2025-02-28] MEDS ORDERED: HYDROCODONE-AC1 EAC1 PO (21:35)
== END 2025-02-28 21:43 | disposition home or self-care (01) ==
LOC: ED 18:28
PROVIDERS: Nurse Practitioner Family
DX: L03.116 Cellulitis of left lower limb (principal); E11.9 Type 2 diabetes mellitus without complications; K21.9 Gastro-esophageal reflux disease without esophagitis; J44.9 Chronic obstructive pulmonary disease, unspecified; F32.A Depression, unspecified; F41.9 Anxiety disorder, unspecified; Z79.899 Other long term (current) drug therapy; Z88.0 Allergy status to penicillin; Z88.5 Allergy status to narcotic agent; Z91.030 Bee allergy status; Z91.041 Radiographic dye allergy status; Z98.890 Other specified postprocedural states

== ENCOUNTER → 2025-06-21 | Outpatient (CLI) | payer OTHER ==
[~2025-06-21] MED LIST changes: +HYDROCODONE-AC1 EAC1 PO
[2025-06-24 00:06] LABS: TESTOS, FREE 5.1 pg/mL (0.0-4.2)
== END | disposition home or self-care (01) ==
LOC: MAMMO 05:15 → LAB 05:15 → MAMMO 13:00
PROVIDERS: ATTEND Nurse Practitioner Women's Health
DX: N63.25 Unspecified lump in the left breast, overlapping quadrants (principal); R92.313 Mammographic fatty tissue density, bilateral breasts; R92.1 Mammographic calcification found on diagnostic imaging of breast; L68.0 Hirsutism; N95.1 Menopausal and female climacteric states